=== PATIENT | male | born 1985 | race Caucasian/White ===

== ENCOUNTER 2021-01-29 13:11 | Emergency (ER) | payer MEDICAID ==
--- NOTE | 2021-01-29 17:59 | EDM.PDOC ---
ED HPI GENERAL MEDICAL PROBLEM - General Chief Complaint: ENT Problem Stated Complaint: ABCCESS TOOTH Time Seen by Provider: 01/29/21 17:50 Source of Information: Reports: Patient History Limitations: Reports: No Limitations - History of Present Illness INITIAL COMMENTS - FREE TEXT/NARRATIVE: Patient is a 35-year-old male presents today for dental abscess. Patient has a swelling to the left side of his jaw line. Patient states he was schedule to see a dentist but he moved. Patient denies any fever chills difficulty swallowing. Patient has pain to the area is made worse with dry needling outside. He denies any fever chills or other complaints. Tooth/Teeth Pain Score (Numeric/FACES): 10 - Related Data Allergies Allergy/AdvReac Type Severity Reaction Status Date / Time No Known Allergies Allergy Verified 01/29/21 16:22 Home Meds: Home Meds . [No Known Home Meds] 01/29/21 [History] Past Medical History - Infectious Disease History Infectious Disease History: Reports: None Social & Family History - Tobacco Use Tobacco Use Status *Q: Current Every Day Tobacco User Years of Tobacco use: 15 Packs/Tins Daily: 1 - Caffeine Use Caffeine Use: Reports: None - Recreational Drug Use Recreational Drug Use: No ED ROS ENT - Review of Systems Review Of Systems: See Below Constitutional: Reports: No Symptoms HEENT: Reports: Dental Pain Respiratory: Reports: No Symptoms Endocrine: Reports: No Symptoms GI/Abdominal: Reports: No Symptoms : Reports: No Symptoms Musculoskeletal: Reports: No Symptoms Skin: Reports: No Symptoms Neurological: Reports: No Symptoms Psychiatric: Reports: No Symptoms Hematologic/Lymphatic: Reports: No Symptoms Immunologic: Reports: No Symptoms ED EXAM, ENT - Physical Exam Exam: See Below Exam Limited By: No Limitations General Appearance: Alert, WD/WN, No Apparent Distress Mouth/Throat: Dental Abcess, Dental Pain. No: Tonsillar Exudates Head: Atraumatic Respiratory/Chest: No Respiratory Distress, Lungs Clear Cardiovascular: Normal Peripheral Pulses GI/Abdominal: Normal Bowel Sounds Course - Vital Signs Last Recorded V/S: Last Vital Signs Temp 98.6 F 01/29/21 16:23 Pulse 55 L 01/29/21 17:48 Resp 16 01/29/21 17:48 BP 135/85 01/29/21 17:48 Pulse Ox 99 01/29/21 17:48 Departure - Departure Time of Disposition: 17:58 Disposition: Home, Self-Care 01 Condition: Good Clinical Impression: Dental abscess - Discharge Information *PRESCRIPTION DRUG MONITORING PROGRAM REVIEWED*: Not Applicable *COPY OF PRESCRIPTION DRUG MONITORING REPORT IN PATIENT KAUR: Not Applicable Instructions: Dental Abscess, [id number] Referrals: PCP,Not In Area [Primary Care Provider] - Additional Instructions: The following information is given to patients seen in the emergency department who are being discharged to home. This information is to outline your options for follow-up care. We provide all patients seen in our emergency department with a follow-up referral. The need for follow-up, as well as the timing and circumstances, are variable depending upon the specifics of your emergency department visit. If you don't have a primary care physician on staff, we will provide you with a referral. We always advise you to contact your personal physician following an emergency department visit to inform them of the circumstance of the visit and for follow-up with them and/or the need for any referrals to a consulting specialist. The emergency department will also refer you to a specialist when appropriate. This referral assures that you have the opportunity for follow-up care with a specialist. All of these measure are taken in an effort to provide you with optimal care, which includes your follow-up. Under all circumstances we always encourage you to contact your private physician who remains a resource for coordinating your care. When calling for follow-up care, please make the office aware that this follow-up is from your recent emergency room visit. If for any reason you are refused follow-up, please contact the [facility] Emergency Department at and asked to speak to the emergency department charge nurse. Please follow up with your primary care physician. If you do not have a primary care physician, see below: [facility] [address] [place] [address] [id number] [facility] [address] [place] [id number] You are seen today for dental pain. You look to have a dental abscess. We will send you home with a mouthwash antibiotics to help out with the infection and we also would like for you to follow-up with a dentist for possible. Sepsis Event Note (ED) - Focused Exam Vital Signs: Vital Signs Temp Pulse Resp BP Pulse Ox 01/29/21 17:48 55 L 16 135/85 99 01/29/21 16:23 98.6 F 64 16 135/78 96 - Assessment/Plan Plan: Patient is a 35-year-old male presents today for possible an abscess to the left. Patient has no swelling to the jawline. The swelling is localized to the left jaw. Patient will be sent home antibiotics for mouthwash.
[2021-01-29] MEDS ORDERED: Lidocaine 2% Viscous Solution 15 ML Cup PO ONE (18:06)
[2021-01-29] MEDS ORDERED: Benzocaine 20% Topical Spray UD MUCMEM ONE (18:06)
== END 2021-01-29 18:15 | disposition home or self-care (01) ==
LOC: MW.ED 13:11
DX: K04.7 Periapical abscess without sinus (principal); Z72.0 Tobacco use
CPT/HCPCS: 99283; A9270

== ENCOUNTER 2021-02-19 18:05 | Emergency (ER) | payer OTHER, MEDICAID ==
[2021-02-19] MEDS ORDERED: fentaNYL 50 MCG/ML SDV ONE ×2 (18:08→19:41)
[2021-02-19] MEDS ORDERED: Sodium Chloride 0.9% 10 ML Syringe FLUSH PRN (18:14)
[2021-02-19] MEDS ORDERED: Sodium Chloride 0.9% 2.5 ML Syringe FLUSH PRN (18:14)
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
[2021-02-19] MEDS ORDERED: fentaNYL 50 MCG/ML SDV IVPUSH ONE ×2 (18:30→19:59)
[2021-02-19] MEDS ORDERED: Iopamidol 755 MG/ML 500 ML Multipack Bottle IVPUSH STA (18:48)
[2021-02-19 18:50] LABS: BLOOD UREA NITROGEN,BUN 16 mg/dL (7.0-18.0); CARBON DIOXIDE,CO2 26.2 mmol/L (21.0-32.0); CHLORIDE,CL 104 mmol/L (98-107); GLUCOSE RANDOM 137 mg/dL (74-106); LIPASE 46 U/L (73-393); POTASSIUM,K 3.3 mmol/L (3.5-5.1); SODIUM,NA 140 mmol/L (136-148)
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
[2021-02-19] MEDS ORDERED: fentaNYL 100 MCG/2 ML SDV IVPUSH PRN (19:57)
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
[2021-02-19] MEDS ORDERED: VANCOmycin 1.5 GM/300 ML 1.5 GM in Premix Bag 1 BAG IV ONE (20:01)
[2021-02-19] MEDS ORDERED: Piperacillin/Tazobactam 3.375 GM in Sodium Chloride 0.9% 50 ML IV ONE (20:01)
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
== END 2021-02-19 20:55 | disposition swing bed (61) ==
LOC: MW.ED 18:05
DX: S06.300A Unspecified focal traumatic brain injury without loss of consciousness, initial encounter (principal); S02.0XXA Fracture of vault of skull, initial encounter for closed fracture; S01.01XA Laceration without foreign body of scalp, initial encounter; V29.9XXA Motorcycle rider (driver) (passenger) injured in unspecified traffic accident, initial encounter; Y93.55 Activity, bike riding
CPT/HCPCS: 12004; 36415; 70450; 71045; 71275; 72125; 72128; 72170; 73610; 74177; 80053; 80307; 83690; 85025; 96365; 96368; 96375; 96376; 99285; G0390; J2543; J3010; J3370; Q9967

== ENCOUNTER 2021-04-29 20:02 | Emergency (ER) | payer MEDICAID ==
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
== END 2021-04-29 21:25 | disposition home or self-care (01) ==
LOC: MW.ED 20:02
DX: G56.03 Carpal tunnel syndrome, bilateral upper limbs (principal); Z72.0 Tobacco use
CPT/HCPCS: 99283